=== PATIENT | female | born 1950 | race American Indian/Alaskan Native ===

== ENCOUNTER 2021-11-19 04:09 | Emergency (ER) | payer MEDICAID ==
[2021-11-19] MEDS ORDERED: TETANUS,DIPH,PERTUSS(ACELL) VACCINE 0.5 ML SYRINGE IM ONE (04:18)
[2021-11-19] MEDS ORDERED: LIDOCAINE (1%) 10 MG/1 ML VIAL 20 ML MDV INFILTRATI ONE (04:18)
[2021-11-19] MEDS ORDERED: SODIUM CHLORIDE 0.9% IRR 500 ML BOTTLE IR ONE (04:18)
--- NOTE | 2021-11-19 04:20 | Event Note ---
Date: 11/19/21 EMS documentation not available at time of chart dictation Verbal report received from emergency medical services Medical screening examination note: 71-year-old female brought to the hospital by EMS with mechanical trip and fall, landing onto the back of her head. Patient has a history of stroke, dementia, and right-sided deficits from an old stroke, with right upper extremity contracture. Patient denies physical pain. Physical exam shows a septal hematoma with small scalp laceration; patient's grandson at the bedside provided consent for hair to be cut to expose occipital hematoma. Check CT scan brain and cervical spine. Have requested lidocaine, sterile saline, tetanus vaccination, and stapler for scalp laceration repair. Detailed history and physical to be performed by oncoming provider. Patient pleasant and cooperative, protecting airway, hemodynamically stable and in no acute distress. Grandson at the bedside denies additional injuries or complaints
--- NOTE | 2021-11-19 05:28 | Cat Scan Report ---
CT HEAD WITHOUT CONTRAST INDICATION / CLINICAL INFORMATION: Trip and fall, closed head injury. TECHNIQUE: CT head was performed without administration of intravenous contrast. All CT scans at this location are performed using CT dose reduction for ALARA by means of automated exposure control. COMPARISON: None available. FINDINGS: CEREBRAL HEMISPHERES: Generalized atrophy and bilateral regions of periventricular white matter hypoa ttenuation compatible with microvascular ischemia are demonstrated. No midline shift. Basal cisterns patent. Large region of encephalomalacia from prior left MCA infarction. HEMORRHAGE: None. CEREBELLUM / BRAINSTEM: Mild cerebellar atrophy. ORBITS: No significant abnormality. SOFT TISSUES: No significant abnormality. SKULL: No significant abnormality. PARANASAL SINUSES / MASTOID AIR CELLS: Normal as visualized. ADDITIONAL FINDINGS: None. IMPRESSION: 1. No acute intracranial abnormality. Signer Name: Gary Carbajal II, MD Signed: 11/19/2021 5:24 AM Workstation Name: [id number]
--- NOTE | 2021-11-19 05:29 | Cat Scan Report ---
CT CERVICAL SPINE WITHOUT CONTRAST INDICATION / CLINICAL INFORMATION: Trip and fall, closed head injury. TECHNIQUE: Axial CT images were obtained through the cervical spine. Sagittal and coronal reformatted images were produced. All CT scans at this location are performed using CT dose reduction for ALARA by means of automated exposure control. COMPARISON: None available. FINDINGS: MANDIBLE: No significant abnormality of the visualized mandible or TMJs. SKULL BASE: No significant abnormality of the skull base. CRANIOCERVICAL JUNCTION: No significant abnormality of the craniocervical junction. CERVICAL SPINE: Cervical spine demonstrates normal alignment without evidence of acute fracture. No s evere central stenosis.. Moderate loss of intervertebral disc space at C3-4. SOFT TISSUES: No significant abnormality of soft tissues or musculature. THYROID: No significant abnormality. UPPER CHEST: Biapical lung scarring. Moderate emphysematous changes. ADDITIONAL FINDINGS: None. IMPRESSION: 1. No evidence of acute osseous injury. Signer Name: Gary Carbajal II, MD Signed: 11/19/2021 5:25 AM Workstation Name: [id number]
[2021-11-19 06:15] VITALS: BP 132/72
--- NOTE | 2021-11-19 06:53 | Emergency Department Report ---
ED Fall HPI - General Chief Complaint: Head Injury Stated Complaint: FALL/HEAD LACERATION Time Seen by Provider: 11/19/21 06:19 Source: patient, EMS Mode of arrival: Stretcher - History of Present Illness Initial Comments: 71-year-old female with a history of CVA status post right-sided deficit and contracture and dementia who now presents with fall few hours ago. Pt says she t ripped and struck her left posterior head on the floor with laceration and bleeding. Pt denies any hip pain or pain in any part of her body. No other modifying or associated factor reported. Pt grandson also in the examination room. - Related Data Previous Rx's Medication Instructions Recorded Last Taken Type HYDROcodone/APAP 5-325 [[place] 1 each PO Q6HR PRN #20 tablet 08/06/13 Unknown Rx 5/325 mg] Allergies Allergy/AdvReac Type Severity Reaction Status Date / Time No Known Allergies Allergy Unverified 08/06/13 16:19 ED Review of Systems ROS: Stated complaint: FALL/HEAD LACERATION Other details as noted in HPI Comment: All other systems reviewed and negative Skin: other (laceration to left posterior scalp ) Neurological: other ED Past Medical Hx - Past Medical History Previous Medical History?: Yes Hx Hypertension: Yes Hx CVA: Yes Hx Diabetes: Yes - Surgical History Past Surgical History?: No - Social History Smoking Status: Never Smoker - Medications Home Medications: Home Medications Medication Instructions Recorded Confirmed Last Taken Type HYDROcodone/APAP 5-325 [[place] 1 each PO Q6HR PRN #20 tablet 08/06/13 Unknown Rx 5/325 mg] ED Physical Exam - General Limitations: Physical Limitation General appearance: alert, in no apparent distress - Head Head exam: Present: other (1 cm linear laceration to left occipital scalp ) - Eye Eye exam: Present: normal appearance Pupils: Present: normal accommodation - ENT ENT exam: Present: normal exam, normal orophraynx - Neck Neck exam: Present: normal inspection. Absent: tenderness - Respiratory Respiratory exam: Present: normal lung sounds bilaterally. Absent: respiratory distress, accessory muscle use - Cardiovascular Cardiovascular Exam: Present: regular rate, normal rhythm, normal heart sounds - GI/Abdominal GI/Abdominal exam: Present: soft, normal bowel sounds. Absent: tenderness - Back Exam Back exam: Absent: tenderness - Neurological Exam Neurological exam: Present: alert, other (demented) - Psychiatric Psychiatric exam: Present: normal affect - Skin Skin exam: Present: warm, other (1 cm linear laceration to left posterior scalp ) ED Course Vital Signs 11/19/21 11/19/21 11/19/21 04:10 05:04 06:15 Temperature 98.6 F 98.6 F Pulse Rate 74 86 Respiratory 18 18 Rate Blood Pressure 152/80 Blood Pressure 132/72 [Left] O2 Sat by Pulse 97 100 Oximetry - Reevaluation(s) Reevaluation #1: 11/19/21 06:55 fall with noted laceration to posterior scalp-- in a patient with previous CVA with rightsided deficit and contracture-- considering this patient dementia and age with past history CT head other to rule out intracranial bleeding-- and noted to be with no acute findings. Laceration repaired with staple and please see procedure note for details. - Laceration /Wound Repair Left Posterior Head Wound Location: head Wound Length (cm): 1 Wound's Depth, Shape: superficial Wound Explored: clean Betadine Prep?: Yes Anesthesia: 1% Lidocaine Volume Anesthetic (ccs): 1 Progress: Laceration repaired with staple x 3 after infiltrating the surrounding tissues with lidocaine and with good wound approximation and patient tolerated procedure well. ED Medical Decision Making - Radiology Data CT head and Cervical resulted with no acute findings. Critical care attestation.: If time is entered above; I have spent that time in minutes in the direct care of this critically ill patient, excluding procedure time. ED Disposition Clinical Impression: Occipital scalp laceration Qualifiers: Encounter type: initial encounter Qualified Code(s): S01.01XA - Laceration without foreign body of scalp, initial encounter Fall Qualifiers: Encounter type: initial encounter Qualified Code(s): W19.XXXA - Unspecified fall, initial encounter Disposition: 01 HOME / SELF CARE / HOMELESS Is pt being admited?: No Does the pt Need Aspirin: No Condition: Stable Instructions: Wound Infection, [id number], Laceration Care, Adult, [id number], Sutures, Burlison, or Adhesive Wound Closure, [id number] Additional Instructions: Please call patients primary doctor and have her seen in the next 5-7 days for wound evaluation and staple removal It is okay to give Tylenol every 6-8 hours as needed for discomfort Call or have patient return to ED if symptoms worsen Time of Disposition: 07:01
== END 2021-11-19 08:00 | disposition home or self-care (01) ==
LOC: ED 04:09
DX: S01.01XA Laceration without foreign body of scalp, initial encounter (principal); I10 Essential (primary) hypertension; E11.9 Type 2 diabetes mellitus without complications; Z86.73 Personal history of transient ischemic attack (TIA), and cerebral infarction without residual deficits; W01.0XXA Fall on same level from slipping, tripping and stumbling without subsequent striking against object, initial encounter; Y93.89 Activity, other specified; Y92.89 Other specified places as the place of occurrence of the external cause; Y99.8 Other external cause status
CPT/HCPCS: 70450; 72125; 90471; 90715; 99284